=== PATIENT | female | born 1955 | race Caucasian/White ===

== ENCOUNTER → 2017-01-08 | Outpatient (CLI) | payer BC | LOC: MAMMO 08:56 | DX: Z12.31 Encounter for screening mammogram for malignant neoplasm of breast (principal) | CPT/HCPCS: G0202 ==

== ENCOUNTER → 2021-08-09 | Outpatient (CLI) | payer MEDICARE, OTHER | LOC: MAMMO 09:51 | DX: Z12.31 Encounter for screening mammogram for malignant neoplasm of breast (principal) ==

== ENCOUNTER → 2022-07-18 | Outpatient (CLI) | payer MEDICARE, OTHER | LOC: RAD 07:58 | DX: R74.8 Abnormal levels of other serum enzymes (principal); N26.1 Atrophy of kidney (terminal) ==

== ENCOUNTER → 2023-12-24 | Outpatient (CLI) | payer MEDICARE, OTHER ==
[~2023-12-24] MED LIST: ALLOPURINOL300 M1 PO; CITALOPRAM40 MG PO; GLIPIZIDE10 M2 PO; HYDROCHLOROTH12.5 M1 PO; JANUVIA25 MG PO; LEVEMIR FLEX100 U/ML SQ; LOPRESSOR 550 MG/TAB PO; PRAVASTATIN SOD80 MG PO
== END ==
LOC: MAMMO 12:28
DX: Z12.31 Encounter for screening mammogram for malignant neoplasm of breast (principal)

== ENCOUNTER → 2024-12-14 | Outpatient (CLI) | payer MEDICARE, OTHER | LOC: MAMMO 13:00 → RAD 13:13 | DX: Z13.820 Encounter for screening for osteoporosis (principal); M85.851 Other specified disorders of bone density and structure, right thigh; M85.852 Other specified disorders of bone density and structure, left thigh; Z78.0 Asymptomatic menopausal state ==